=== PATIENT | female | born 1935 | race Caucasian/White ===

== ENCOUNTER 2017-09-12 14:05 | Inpatient (IN) | END 2017-09-16 17:00 | disposition home or self-care (01) | DRG 554 ==

== ENCOUNTER 2018-05-12 11:14 | Day surgery (SDC) | payer MEDICARE, OTHER ==
[~2018-05-12] VITALS: Ht 132.1 cm; Wt 62.2 kg
[~2018-05-12 11:14] MED LIST: ATEN50TA PO; BEN25 PO; BENA10TA4 PO; CALC-143 PO; ERGO2000 PO; ESOM40CA PO; FOLI-49 PO; GABA300C16 PO; HYDR-843 PO; MET25 PO; MULT-542 PO; OMEG-135 PO; TOCI400V IV
[2018-05-12 12:26] VITALS: Ht 132.1 cm; Wt 62.2 kg
[2018-05-12] MEDS ORDERED: MELO7.5O PO (12:42)
[2018-05-12] MEDS ORDERED: LEVSIN PO (12:42)
[2018-05-12 13:00] VITALS: BP 195/84; PULSE 70; RESP 17
--- NOTE | 2018-05-12 13:08 | PREAC ---
Date/Time of Note Date/Time of Note DATE: 05/12/18 TIME: 13:07 Anesthesia Eval and Record Evaluation Time Pre-Procedure Interview DATE: 05/12/18 TIME: 13:07 Age 82 Sex female NPO: 8 hrs Preoperative diagnosis abdominal pain, reflux esophagitis Planned procedure EGD Past Medical History Past Medical History: Includes Cardio: HTN Musculoskeletal: Rheumatoid arthritis GI: GERD (f), Obesity Surgery & Anesthesia Issues No known issue Meds Anticoagulation: No Beta Neeru within 24 hr: Yes Reason Beta Neeru not given: Bradycarida, Hypotension Reported Medications Meloxicam* (Meloxicam*) 7.5 Mg/5 Ml Oral.susp, 15 MG PO DAILY, #300 ML 05/12/18 [Levsin] No Conflict Check, PO 05/12/18 Tocilizumab (Actemra) 400 Mg/20 Ml Vial, 480 MG IV EVERY FOUR WEEKS, VIAL 09/12/17 Methotrexate* (Methotrexate*) 2.5 Mg Tab, 20 MG PO EVERY WEDNESDAY, TAB 09/12/17 Mercer-3 Fatty Acids/Fish Oil (Fish Oil 1,000 mg Capsule) 1 Each Capsule, 1 EACH PO BID, CAP 09/12/17 Multivitamin* (Daily Value*) 1 Each Tablet, 1 TAB PO DAILY, TAB 09/12/17 Benazepril Hcl* (Benazepril Hcl*) 10 Mg Tablet, 10 MG PO DAILY, #30 TAB 09/12/17 Atenolol* (Atenolol*) 50 Mg Tablet, 50 MG PO DAILY, #30 TAB 09/12/17 Folic Acid* (Folic Acid*) 1 Mg Tablet, 1 MG PO DAILY, TAB 09/12/17 Esomeprazole Mag Trihydrate (Nexium) 40 Mg Capsule.dr, 40 MG PO DAILY, #30 CAP 09/12/17 Gabapentin* (Gabapentin*) 300 Mg Capsule, 300 MG PO BID, #60 CAP 09/12/17 Discontinued Reported Medications Diphenhydramine Hcl* (Benadryl*) 25 Mg Cap, 25 MG PO QHS PRN for SLEEP, CAP 09/12/17 Ergocalciferol (Vitamin D2) (VITAMIN D2) 2,000 Unit Tablet, 2000 UNIT PO DAILY, TAB 09/12/17 Calcium Citrate/Vitamin D (Citracal-Vitamin D 200 MG-250) 1 Each Tablet, 1 EACH PO DAILY, TAB 09/12/17 Hydroxyzine Hcl* (Hydroxyzine Hcl*) 25 Mg Tablet, 25 MG PO BID PRN for ITCHING, #30 TAB 09/12/17 Meds reviewed: Yes Allergies Coded Allergies: No Known Allergies (Verified Allergy, Mild, 09/12/17) Allergies Reviewed: Yes Labs/Studies Labs Reviewed: Reviewed by anesthesiologist test: N/A Pre-procedure Exam Airway: Adequate mouth opening, Adequate thyromental dist Mallampati: Mallampati II Teeth: Normal Lung: Normal Heart: Normal ASA Physical Status ASA physical status: 2 Emergency: None Planned Anesthetic General/MAC: Mask Planned Pain Management Parenteral pain med Pre-operative Attestations Prior to commencing anesthesia and surgery, the patient was re-evaluated, there was verification of: *The patient's identity *The results of appropriate recent lab work and preoperative vital signs *The above evaluation not changing prior to induction *Anesthetic plan, risk benefits, alternative and complications discussed with patient/family; questions answered; patient/family understands, accepts and wishes to proceed. WES JUNIOR MD May 12, 2018 13:08
[2018-05-12] MEDS ORDERED: LIDOCAINE 2% (SDV) 5 ML INJ ONE (13:11)
[2018-05-12] MEDS ORDERED: PROPOFOL 20 ML ONE (13:11)
[2018-05-12] MEDS ORDERED: HYDROmorphONE 1 MG/5 ML IV SYRINGE IV PRN (13:30)
[2018-05-12] MEDS ORDERED: ONDANSETRON 4 MG INJ IV PRN (13:30)
--- NOTE | 2018-05-12 13:43 | PAC ---
Date/Time of Note Date/Time of Note DATE: 05/12/18 TIME: 13:42 Post-Anesthesia Notes Post-Anesthesia Note Last documented vital signs Vital Signs Date Temp Pulse Resp B/P (MAP) Pulse Ox O2 O2 Flow FiO2 Time Delivery Rate 05/12/18 97.1 70 17 195/84 100 Room Air 13:00 (121) Activity: WNL Respiratory function: WNL Cardiovascular function: WNL Mental status: Baseline Pain reasonably controlled: Yes Hydration appropriate: Yes Nausea/Vomiting absent: Yes Comments BP: 121/57 HR: 71 RR: 15 T: 98 Sao2: 99% WES JUNIOR MD May 12, 2018 13:43
[2018-05-12 14:00] VITALS: BP 135/61; PULSE 63; RESP 14
--- NOTE | 2018-05-13 06:31 | CONS ---
DATE OF ADMISSION: 05/12/2018 DATE OF CONSULTATION: PATIENT NAME: DIANA SORENSEN TYPE OF CONSULTATION: Preoperative gastroenterology. Dear Dr. Cody Cobb: I thank you very much for this kind referral. HISTORY OF PRESENT ILLNESS: Ms. Diana Sorensen is an 82-year-old female patient who has been referred t o me for further evaluation of upper abdominal pain and chronic heartburn not responding to therapy w ith Nexium. The patient has been taking methotrexate and meloxicam. Appetite has been somewhat poor . No significant weight loss. PAST MEDICAL HISTORY: The patient is status post cholecystectomy. No history of liver disease. The patient has history of colon polyps. She denies any change in the bowel habit or rectal bleeding. She is hypertensive. Not a diabetic. No heart disease, lung problem or kidney disease. She has got rheumatoid arthritis. She is status post bilateral knee replacement surgery. SOCIAL HISTORY: Nonsmoker. No alcohol abuse. FAMILY HISTORY: No family history of gastrointestinal tract neoplasm. ALLERGIES: NO DRUG ALLERGIES. MEDICATIONS: 1. Nexium 40 mg p.o. daily a.m. 2. Atenolol 50 mg p.o. daily. 3. Benazepril 10 mg p.o. daily. 4. Levsin 0.125 mg p.o. q.i.d. p.r.n. 5. Methotrexate 2.5 mg tablet 8 tablets per week. 6. Meloxicam 15 mg p.o. daily. PHYSICAL EXAMINATION: VITAL SIGNS: She is 4 feet, 10 inches tall and weighs 134 pounds, BMI 28, blood pressure 132/84. HEART: Normal heart sounds. LUNGS: Clear. ABDOMEN: Soft. No masses. Normal bowel sounds. NEUROLOGIC: Normal. IMPRESSION: 1. Upper abdominal pain and chronic heartburn, not responding to therapy with Nexium. 2. The patient complains of loss of appetite. 3. History of colon polyp. 4. The patient had last colonoscopy 5 years ago. 5. Hypertension. 6. Rheumatoid arthritis. 7. Status post cholecystectomy. 8. Elevated body mass index. PLAN: 1. Endoscopic examination for further evaluation. 2. Because of the patient's age, she will need monitored anesthesia care. 3. Follow up with the primary MD for the management of elevated BMI and hypertension. The procedure and possible complications are well explained to the patient. She understands and cons ents to the procedure. I thank you once again. With warmest personal regards, Dictated By: MICHAEL LEMUS/DEZ Conf#: [id number] DID#: [id number]
== END 2018-05-12 16:42 | disposition home or self-care (01) ==
LOC: GIL 11:14
PROVIDERS: ATTEND Internal Medicine Gastroenterology
DX: K44.9 Diaphragmatic hernia without obstruction or gangrene (principal); K21.0 Gastro-esophageal reflux disease with esophagitis; I10 Essential (primary) hypertension; E66.9 Obesity, unspecified; Z68.35 Body mass index [BMI] 35.0-35.9, adult; M06.9 Rheumatoid arthritis, unspecified
CPT/HCPCS: 88305; 88312